=== PATIENT | female | born 1990 | race Two or more races ===

== ENCOUNTER 2023-01-20 21:21 | Outpatient (CLI) | payer MEDICAID, SELFPAY ==
[2023-01-20 21:28] VITALS: BP 121/76; PULSE 103; RESP 18; TEMP 36.7; O2SAT 98
--- NOTE | 2023-01-20 21:43 | ED.NURSE ---
this RN called OB, OB to continue assessment and potential treatments in OB department.
[2023-01-20 22:08] VITALS: PULSE 102; O2SAT 93
[2023-01-20 22:09] VITALS: BP 129/70; PULSE 93; PULSE 98; RESP 18; TEMP 37.4; O2SAT 96
[2023-01-20 22:26] LABS: Appearance Urine Clear (Clear); Bilirubin Urine Negative (Negative); Blood Urine Negative (Negative); Color Urine Yellow (Yellow); Glucose Urine Negative (Negative); Ketones Urine Negative (Negative); Leukocyte Esterase Urine Negative (Negative); Nitrite Urine Negative (Negative); Protein Urine Negative (Negative); Specific Gravity Urine 1.015 (1.000-1.030); Urobilinogen Urine 0.2 (0.2-1.0)
[2023-01-20 22:51] LABS: Clue Cells <20% Clue Cells Seen (None Seen); Trichomonas No Trichomonas Seen (None Seen); Yeast No Yeast Seen (None Seen)
--- NOTE | 2023-01-20 23:47 | ED.GENADULT ---
HPI - General Adult General Chief complaint: Abdominal Pain Stated complaint: 30 weeks , unspecific complaint. Time Seen by Provider: 01/20/23 22:03 History of Present Illness HPI narrative: Patient was not seen in the emergency department. She [facility] managed by [facility]. Related Data Home Medications Medication Instructions Recorded Confirmed aspirin 81 mg chewable tablet 1 tab PO DAILY 01/20/23 01/20/23 ferrous sulfate 325 mg (65 mg 325 mg PO DAILY 01/20/23 01/20/23 iron) tablet,delayed release vitamin with calcium 1 tab PO DAILY 01/20/23 01/20/23 no.72-iron 27 mg-folic acid 1 mg tablet ( Vitamins Plus Low Iron) progesterone micronized 200 mg 200 mg PO QPM 01/20/23 01/20/23 capsule Allergies Allergy/AdvReac Type Severity Reaction Status Date / Time No Known Drug Allergies Allergy Verified 01/20/23 22:12 [facility] PFS Social History Smoking Status: Never smoker Exam Const: Vital Signs, click to edit/add: Vital Signs - 24 hr 01/20/23 21:28 01/20/23 22:08 01/20/23 22:09 Temperature 98.0 F Pulse Rate 93 Pulse Rate [Left P ulse Oximeter] 103 H Respiratory Rate 18 Blood Pressure 129/70 Blood Pressure [Ri ght Upper Arm] 121/76 Pulse Oximetry 98 93 96 Oxygen Delivery Me thod Room Air 01/20/23 22:09 Temperature 99.3 F Pulse Rate Pulse Rate [Left P ulse Oximeter] Respiratory Rate 18 Blood Pressure Blood Pressure [Ri ght Upper Arm] Pulse Oximetry Oxygen Delivery Me thod Course Vital Signs Vital signs: Initial Vital Signs Temperature 98.0 F 01/20/23 21:28 Temperature Source Temporal Artery Scan 01/20/23 21:28 Pulse Rate 103 H 01/20/23 21:28 Pulse Rhythm Regular 01/20/23 21:28 Respiratory Rate 18 01/20/23 21:28 Blood Pressure 121/76 01/20/23 21:28 Blood Pressure Mean 91 01/20/23 21:28 Blood Pressure Position Sitting 01/20/23 21:28 Pulse Oximetry 98 01/20/23 21:28 Oxygen Delivery Method Room Air 01/20/23 21:28 Vital Signs Temperature 98.0 F 01/20/23 21:28 Pulse Rate 103 H 01/20/23 21:28 Respiratory Rate 18 01/20/23 21:28 Blood Pressure 121/76 01/20/23 21:28 Pulse Oximetry 98 01/20/23 21:28 Oxygen Delivery Method Room Air 01/20/23 21:28 Temperature 99.3 F 01/20/23 22:09 Pulse Rate 93 01/20/23 22:09 Respiratory Rate 18 01/20/23 22:09 Blood Pressure 129/70 01/20/23 22:09 Pulse Oximetry 96 01/20/23 22:09 Oxygen Delivery Method Room Air 01/20/23 21:28 Medical Decision Making Lab Data Labs: Lab Results 01/20/23 01/20/23 Range/Units 22:00 22:40 Urine Color Yellow (Yellow) Urine Appearance Clear (Clear) Urine pH 7.0 (5.0-8.5) Ur Specific [place] 1.015 (1.000-1.030) Urine Protein Negative (Negative) Urine Glucose (UA) Negative (Negative) Urine Ketones Negative (Negative) Urine Blood Negative (Negative) Urine Nitrite Negative (Negative) Urine Bilirubin Negative (Negative) Urine Urobilinogen 0.2 (0.2-1.0) Ur Leukocyte Esterase Negative (Negative) Vaginal Trichomonas No Trichomonas Seen (None Seen) Vaginal Yeast No Yeast Seen (None Seen) Vaginal Clue Cells <20% Clue Cells Seen (None Seen) Discharge Plan Discharge Patient Disposition: Admit to OB
== END 2023-01-20 23:14 | disposition home or self-care (01) ==
LOC: OB OUT 22:03 → ED 22:03 → OB 22:04
PROVIDERS: Emergency Provider Family Medicine; PCP Internal Medicine; Visit Provider Family Medicine
DX: O47.03 False labor before 37 completed weeks of gestation, third trimester (principal); Z3A.30 30 weeks gestation of pregnancy
CPT/HCPCS: 59025; 81003; 87210; 99213; 99281

== ENCOUNTER 2023-03-16 23:24 | Outpatient (CLI) | payer MEDICAID, SELFPAY ==
[2023-03-17 00:04] VITALS: BP 119/76; PULSE 85
[2023-03-17 00:21] LABS: Amnisure Rom* Negative
--- NOTE | 2023-03-17 01:40 | PC.OBNST ---
NST Note NST Note Start: 03/16/23 23:48 Freq: ONCE Status: Active Protocol: Document 03/17/23 01:35 BETH (Rec: 03/17/23 01:39 BETH [id number]) NST Note 6 Para (# of births) 1 EDC 04/07/23 Gestational Age In Weeks & Days 37 Weeks & 0 Days Patient Presented with Complaint(s) of Leaking fluid Reactive Yes Appropriate for Gestational Age Yes GABRIELA Soto RN Date 03/17/23 Reactive Yes Appropriate for Gestational Age Yes GABRIELA Espinoza Date 03/17/23 OB NST charge Yes Complete NST Note via Write Note Yes The provider's electronic signature indicates the NST is reactive/appropriate for gestational age. *Note to provider: If an addendum is required, open the patient's chart and click on the note under the Nurse/Allied Health tab.
--- NOTE | 2023-03-17 01:42 | PC.OBNST ---
NST Note NST Note Start: 03/16/23 23:48 Freq: ONCE Status: Active Protocol: Document 03/17/23 01:35 BETH (Rec: 03/17/23 01:39 BETH [id number]) NST Note 6 Para (# of births) 1 EDC 04/07/23 Gestational Age In Weeks & Days 37 Weeks & 0 Days Patient Presented with Complaint(s) of Leaking fluid Reactive Yes Appropriate for Gestational Age Yes GABRIELA Soto RN Date 03/17/23 Reactive Yes Appropriate for Gestational Age Yes GABRIELA Espinoza Date 03/17/23 OB NST charge Yes Complete NST Note via Write Note Yes The provider's electronic signature indicates the NST is reactive/appropriate for gestational age. *Note to provider: If an addendum is required, open the patient's chart and click on the note under the Nurse/Allied Health tab.
== END 2023-03-17 01:15 | disposition home or self-care (01) ==
LOC: OB OUT 23:25 → OB 23:25
PROVIDERS: PCP Internal Medicine; Visit Provider Family Medicine
DX: O47.1 False labor at or after 37 completed weeks of gestation (principal); Z3A.39 39 weeks gestation of pregnancy
CPT/HCPCS: 59025; 84112; 99213

== ENCOUNTER 2023-03-29 12:26 | Outpatient (CLI) | payer MEDICAID, SELFPAY ==
[2023-03-29 12:47] VITALS: BP 120/77; PULSE 106
[2023-03-29 13:03] VITALS: BP 132/79; PULSE 98
[2023-03-29 13:18] VITALS: BP 124/76; PULSE 90
[2023-03-29 13:30] LABS: Hematocrit 37.4 % (33.0-51.0); Hemoglobin* 12.5 gm/dL (12.0-16.0); Mean Corpuscular HGB Conc 33 gm/dL (32-36); Mean Corpuscular Hemoglobin 31 pg (26-34); Mean Corpuscular Volume 92 fL (80-100); Platelet Count* 187 K/uL (140-440); Red Blood Count 4.07 m/uL (4.00-5.20); White Blood Count* 8.25 K/uL (4.50-11.00)
[2023-03-29 13:35] LABS: Slide Review Reflex No
[2023-03-29 13:44] VITALS: TEMP 36.6
[2023-03-29 13:45] LABS: Total Protein Urine 16 mg/dL
[2023-03-29 13:45] LABS: Alanine Aminotransferase* 19 U/L (4-35); Aspartate Amino Transferase* 25 U/L (12-35); Blood Urea Nitrogen* 5 mg/dL (5-24); Creatinine* 0.4 mg/dL (0.5-1.5); Estimated Glomerular Filt Rate 136 ml/min; Prothrombin Time 12.7 Seconds
[2023-03-29 13:46] LABS: Fibrinogen* 465 mg/dL (200-450); Partial Thromboplastin Time* 24 Seconds (23-33)
[2023-03-29 13:46] LABS: Creatinine Urine 32.7 mg/dL
[2023-03-29] MEDS: ACETAMINOPHEN 500 MG TABLET PO (14:35)
[2023-03-29] MEDS: METOCLOPRAMIDE 10 MG TABLET PO (14:35)
[2023-03-29] MEDS: LACTATED RINGERS 1000 ML 1,000 ML 500 ML IV (15:01)
[2023-03-29 15:54] VITALS: BP 129/76; PULSE 83
--- NOTE | 2023-03-29 17:36 | PC.OBNST ---
NST Note NST Note Start: 03/29/23 12:32 Freq: ONCE Status: Discharge Protocol: Document 03/29/23 16:00 WK (Rec: 03/29/23 17:36 WK [id number]) NST Note 6 Para (# of births) 1 EDC 03/31/23 Gestational Age In Weeks & Days 39 Weeks & 5 Days Patient Presented with Complaint(s) of Pain,Headache,Other If Pain, describe location abdominal cramping Reactive Yes RN Chris RN Date 03/29/23 Reactive Yes RN Cecilia RNC Date 03/29/23 OB NST charge Yes Complete NST Note via Write Note Yes The provider's electronic signature indicates the NST is reactive/appropriate for gestational age. *Note to provider: If an addendum is required, open the patient's chart and click on the note under the Nurse/Allied Health tab.
== END 2023-03-29 16:30 | disposition home or self-care (01) ==
LOC: OB OUT 12:26 → OB 12:27
PROVIDERS: PCP Internal Medicine; Visit Provider Family Medicine
DX: O47.1 False labor at or after 37 completed weeks of gestation (principal); Z3A.39 39 weeks gestation of pregnancy
CPT/HCPCS: 36415; 59025; 82565; 82570; 84156; 84450; 84460; 84520; 85027; 85384; 85610; 85730; 99213; A9270; J7120

== ENCOUNTER 2023-04-01 16:26 | Inpatient (IN) | payer MEDICAID, SELFPAY ==
[2023-04-01 16:39] VITALS: BP 131/89; PULSE 93; TEMP 37
[2023-04-01 16:43] VITALS: BMI 39.4
--- NOTE | 2023-04-01 18:18 | PM.OBHPLI ---
OB - H&P: HPI Labor/Induction History of Present Illness Date Seen: 04/01/23 Chief Complaint: The patient is a 32 year old 6 para 0141 at 40+1 weeks gestation by LMP, who presents for IOL. Chief complaint: Maternity Narrative: Arabella Mccain is a 32 yo at 40+1 weeks by LMP here for IOL. has been uncomplicated. She has been on ASA for history of preeclampsia with prior and was on progestin given prior . on 03/29/23, she was seen in the center with severe headache and vision changes. Labs were unremarkable other than PCR of 0.4. Her headache did resolve with IV fluids, Tylenol and reglan. Because of her headache and prior history of preeclampsia, she requested an earlier induction. She reports no LOGAN, no abdominal pain, swelling is no worse than it has been. She is feeling pelvic pressure and occasional mild contractions. History of Present Dating criteria: based on LMP care: good care Ultrasounds: normal 1st trimester US and normal mid trimester US Medical complications: none Labs Blood type: O (+) positive Rubella: immune RPR/VDLR: nonreactive GBS status: negative HBsAG: negative Review of Systems Status of ROS: Reports: 6 or more systems reviewed and unremarkable except as noted in History and below Meds Home Medications and Allergies Home Medications Medication Instructions Recorded Confirmed Type aspirin 81 mg chewable tablet 1 tab PO DAILY 01/20/23 04/01/23 History ferrous sulfate 325 mg (65 mg 325 mg PO DAILY 01/20/23 04/01/23 History iron) tablet,delayed release vitamin with calcium 1 tab PO DAILY 01/20/23 04/01/23 History no.72-iron 27 mg-folic acid 1 mg tablet ( Vitamins Plus Low Iron) calcium carbonate 200 mg calcium 200 mg PO QID PRN 04/01/23 04/01/23 History (500 mg) chewable tablet (Antacid (calcium carbonate)) famotidine 20 mg tablet 20 mg PO BID 04/01/23 04/01/23 History Allergies Allergy/AdvReac Type Severity Reaction Status Date / Time No Known Drug Allergies Allergy Verified 01/20/23 22:12 OB - H&P: Exam Physical Exam: Vital signs: Temp Pulse BP 98.6 F 93 131/89 04/01/23 16:39 04/01/23 16:39 04/01/23 16:39 Constitutional: Constitutional: no acute distress Routine HEENT Exam: Head: Present atraumatic Eye: Present EOMI and PERRL ENT: Present mucous membranes moist and TM's normal bilaterally Routine Neck Exam: Neck: Present full ROM Routine Respiratory Exam: Respiratory: Present CTA bilaterally Routine Cardiovascular Exam: Cardiovascular: RRR Detailed Labor and Delivery Exam: Patient Gravid: Yes Dilation (cm): 2 Effacement (%): 40 Cervix position: posterior Consistency: medium Cervical ripeness score: 4 Contraction frequency (min): 5 Contraction intensity: Mild Fetus (Single): Station: -3 Amniotic Membrane Status: intact Heart Rate Baseline: 150 Monitor Accelerations: Present Monitor Decelerations: None Flexographic Printing Machinist Variability: Moderate (6-25) Routine Psychiatric Exam: Present normal affect and normal thought process OB - Problem Based A/P Additional Plan (1) Term : Status: Acute Plan Patient here for elective induction, but in the setting of prior preeclampsia, recent severe headache/vision changes. Discussed risks/benefits of induction and she would like to proceed with th einduction. Delivery/Labor/Induction Plan Induction method: Intracervical balloon catheter
[2023-04-01 19:14] VITALS: BP 123/78; PULSE 100; RESP 16; TEMP 36.6
[2023-04-01] MEDS: hydrOXYzine pamoate 25 MG CAPSULE 100 MG PO (20:08)
[2023-04-01] MEDS: MORPHINE 10 MG/ML inj IM (20:08)
[2023-04-01] MEDS: LACTATED RINGERS 1000 ML 1,000 ML 999 ML IV (21:12)
[2023-04-01 21:49] LABS: Basophils Absolute Auto 0.02 K/uL (0.00-0.30); Basophils Percent Auto 0.2 % (0.0-3.0); Eosinophils Absolute Auto 0.12 K/uL (0.00-0.50); Eosinophils Percent Auto 1.3 % (0.0-7.0); Hematocrit 36.8 % (33.0-51.0); Hemoglobin* 12.5 gm/dL (12.0-16.0); Immature Granulocytes Abs Auto 0.09 K/uL (0.00-0.30); Immature Granulocytes Pct Auto 0.9 %; Lymphocytes Percent Auto 19.6 % (20-44); Mean Corpuscular HGB Conc 34 gm/dL (32-36); Mean Corpuscular Hemoglobin 31 pg (26-34); Mean Corpuscular Volume 91 fL (80-100); Monocytes Percent Auto 5.5 % (0.0-11.0); Neutrophils Percent Auto 72.5 % (42.0-72.0); Platelet Count* 184 K/uL (140-440); RDW Coefficient of Variation % 13.7 % (11.5-15.5); Red Blood Count 4.03 m/uL (4.00-5.20); White Blood Count* 9.57 K/uL (4.50-11.00)
[2023-04-01 22:02] LABS: Slide Review Reflex No
[2023-04-01 23:52] VITALS: BP 109/61; PULSE 95; RESP 16; TEMP 36.9
[2023-04-02] VITALS (34 sets, daily range): BP systolic 106–135; BP diastolic 56–84; PULSE 82–107; RESP 16–18; TEMP 36.7–37.3; O2SAT 96–98
[2023-04-02] MEDS: LACTATED RINGERS 1000 ML 1,000 ML 999 ML IV (02:17)
--- NOTE | 2023-04-02 05:15 | PM.OBPNL ---
Subjective Date Seen: 04/02/23 Narrative: Arabella is a at 40+2 weeks gestation who underwent cook catheter placement overnight for cervical ripening. Arabella is here for elective induction, although induction was scheduled after visit for severe headache and vision changes and history of preeclampsia. After morphine and vistaril administration at 2000, baby had minimal variability and this did not improve with IV fluids, juice or position changes. at 0200, after reviewing the strip with hat conditioner health administration teacher, we elected to try another 1 L IV fluids and reassess at 0400. still showed minimal variability. Cook catheter removed. After discussing concerns with patient and discussion of plan, she underwent AROM with moderate amount of clear fluid at 0500 and IUPC and FSE placed. Patient tolerated the procedure well. Objective Vital Signs: Last Vital Signs Temp 98.3 F 04/02/23 04:20 Pulse 103 H 04/02/23 04:19 Resp 16 04/01/23 23:52 BP 122/78 04/02/23 04:19 Pulse Ox 97 04/02/23 04:20 Pelvic Exam Dilation (cm): 5 Effacement (%): 70 Station: -3 Contractions Monitor mode: Internal Contraction Frequency: 4-6 Contraction pattern: Irregular Contraction intensity: Mild Assessment Station: -3 Amniotic Membrane Status: AROM Status: Category ll Heart Rate Baseline: 150 Saw Repairer Variability: Minimal (3-5) Monitor Accelerations: Absent Monitor Decelerations: None Plan Plan: Induction started with AROM. Given lack of variability on strip, will continue expectant management for now. If FHTs will tolerate, and if no cervical change is made, will start pitocin. If FHTs continue to be non reactive, will have hat conditioner consult to advise of labor management.
[2023-04-02] MEDS: OXYTOCIN 30 unit/500 ML in NS 30 UNIT/500 ML BAG IVPB (09:49)
[2023-04-02] MEDS: LACTATED RINGERS 1000 ML 1,000 ML 124 ML IV (09:49)
--- NOTE | 2023-04-02 12:18 | P.OBPN_ITS ---
Subjective Date Seen: 04/02/23 Narrative: After consultation with OB health management consultant, pitocin was started this morning, however with only 2 units of pitocin she began having recurrent late decelerations and prolonged periods of minimal variability in FHTs. She has not made cervical change, so OB was consulted to discuss c section. Objective Vital Signs: Last Vital Signs Temp 98.9 F 04/02/23 11:05 Pulse 94 04/02/23 11:55 Resp 16 04/02/23 11:05 BP 116/56 L 04/02/23 11:55 Pulse Ox 97 04/02/23 04:20 Pelvic Exam Dilation (cm): 5 Effacement (%): 70 Station: -3 Contractions Monitor mode: Internal Contraction pattern: Irregular Contraction intensity: Mild Assessment Station: -3 Amniotic Membrane Status: AROM Status: Category ll Heart Rate Baseline: 150 Banquet Line Cook Variability: Minimal (3-5) Monitor Accelerations: Absent Monitor Decelerations: Recurrent Tracing Comments: recurrent late and variable deceleration. Plan Plan: OB consulted and discussed .
--- NOTE | 2023-04-02 12:21 | PM.OBCN1 ---
OB - CN: HPI Date of Consult Time Seen by Provider: 12:21 Date Seen: 04/02/23 Consult date: 04/02/23 Requesting Physician: Marcia Douglas MD Primary Care Provider: Kaiser Salmeron MD Consult Narrative Narrative: HPI: Arabella is a 32 year old G 6 P 0141 at 40 weeks and 2 days gestation that was admitted to the Center on 04/01/23 for induction of labor due to nonreactive heart rate tracing. She had a Cook catheter placed on 04/01/2023. The heart rate tracing had long areas of minimal variability and spontaneous decelerations overnight. The Cook catheter was removed at 4:00 a.m.. Official rupture membranes took place at 5:00 a.m. with clear fluid noted. The heart rate tracing became much more reassuring and Pitocin was started and repetitive late decelerations were noted. The Pitocin was turned off and restarted a 2nd time resulting an repetitive late decelerations again. At that point I was asked to see the patient for recommendations for a primary low-transverse section due to intolerance of labor remote from delivery. Please see Dr. Gutierrez hers history and physical admission note for complete past medical, surgical, social and family histories. History of Present Dating criteria: based on LMP care: good care Ultrasounds: normal mid trimester US complications comment: History of delivery & preeclampsia. This uncomplicated. History History 6 Elective abortions Para 1 Spontaneous abortions Hx # Term Pregnancies Ectopic pregnancies Hx # Pregnancies Multiple births Number of Living Children 1 Labs Blood type: O (+) positive Rubella: immune RPR/VDLR: nonreactive GBS status: negative HBsAG: negative OB Labs: Lab Assessment Start: 04/01/23 16:41 Freq: ONCE Status: Complete Protocol: PC.OBGBS Activity Type Activity Date Activity User E-sign Co-sign Detail Recorded Client Recorded Date Recorded By Document 04/01/23 17:45 HCR [id number] 04/01/23 17:46 HCR 04/01/23 17:45 Lab Assessment GBS Status negative GBS Additional Criteria None No Treatment Needed OK Are Labs Available Yes Maternal Blood Type O Maternal RH Factor Positive Evaluate Maternal Rubella Immune Status Immune Hepatitis B Surface Antigen Negative Maternal HIV Status Negative Maternal Syphillis (RPR) Status Negative PFSH PFSH Medical History (Updated 04/02/23 @ 12:33 by Suzanne Jacobo MD) intolerance to labor, delivered, current hospitalization ?O77.9 - Labor and delivery complicated by stress, unspecified (ICD-10) Surgical History (Updated 04/02/23 @ 12:33 by Suzanne Jacobo MD) Status post primary low transverse section (04/02/23) ?Z98.891 - History of uterine scar from previous surgery (ICD-10) Social History What is your current living situation?: I presently have a place to live Problems where you live: no known problems In the past 12 months, utilities in danger of being shut off: no In the past 12 mos, have been you worried that your food would run out before you had money to buy more?: never true In the past 12 mos, the food you bought just didn't last and you didn't have money to buy more?: never true Smoking Status: Never smoker How often does anyone, including family, friends and others, physically hurt you: never How often does anyone, including family, friends and others, insult or talk down to you: never How often does anyone, including family, friends and others, threaten you with harm: never How often does anyone, including family, friends and others, scream or curse at you: never Meds Home Medications and Allergies Home Medications Medication Instructions Recorded Confirmed Type aspirin 81 mg chewable tablet 1 tab PO DAILY 01/20/23 04/01/23 History ferrous sulfate 325 mg (65 mg 325 mg PO DAILY 01/20/23 04/01/23 History iron) tablet,delayed release vitamin with calcium 1 tab PO DAILY 01/20/23 04/01/23 History no.72-iron 27 mg-folic acid 1 mg tablet ( Vitamins Plus Low Iron) calcium carbonate 200 mg calcium 200 mg PO QID PRN 04/01/23 04/01/23 History (500 mg) chewable tablet (Antacid (calcium carbonate)) famotidine 20 mg tablet 20 mg PO BID 04/01/23 04/01/23 History Allergies Allergy/AdvReac Type Severity Reaction Status Date / Time No Known Drug Allergies Allergy Verified 01/20/23 22:12 OB - H&P: Exam Physical Exam: Vital signs: Temp Pulse Resp BP Pulse Ox 98.9 F 94 16 116/56 L 97 04/02/23 11:05 04/02/23 11:55 04/02/23 11:05 04/02/23 11:55 04/02/23 04:20 Narrative: General: Pleasant, woman in no acute distress. Vital signs: Per her electronic medical record. FSE: Baseline 150's. Spontaneous decelerations. Sporadiac accelerations. Minimal variability. Category 2. IUPC: Very minimal contractions with [place] units less than 50 in 10 minutes SVE: see Dr. Douglas's note. OB - Results Labs Labs: Short CBC 04/01/23 Range/Units 20:35 WBC 9.57 (4.50-11.00) K/uL Hgb 12.5 (12.0-16.0) gm/dL Hct 36.8 (33.0-51.0) % Plt Count 184 (140-440) K/uL OB - CN: A/P Assessment and Plan (1) Term : Status: Acute (2) intolerance to labor, delivered, current hospitalization: Status: Acute (3) Status post primary low transverse section: Problem details: Girl. Palmer. Status: Acute Plan 1. Consent form for primary low-transverse section reviewed with the patient via registered nurse ambulatory. 2. Recommended urgent delivery due to intolerance of labor with positive contraction stress test in a patient who is not actively laboring. 3. All questions answered.
--- NOTE | 2023-04-02 12:34 | PM.PROC ---
Procedure Note Time Seen by Provider: 12:34 Date Seen: 04/02/23 Will [facility] bill your pro fee for this procedure?: Yes Procedure: Preoperative diagnosis: 32 year-old 6 para 0141 at 40 and 2/7 weeks intolerance of labor remote from delivery Postoperative diagnosis: Same Procedure: Primary low-transverse section Anesthesia: Spinal Surgeon: Suzanne Jacobo MD Campus Recruiting Coordinator: Cyn Sofia RN FA Quantitative blood loss: 524 mL IV Fluid: 900 mL UOP: 250 mL clear urine at the end of the procedure Specimen: Placenta Drain(s): Tee to gravity Findings: A live female was delivered from the LOP and asynclitic position at 1:18 pm. Apgars were 7 at 1 min, 7 at 5 min. and 8 at 10 min., respectively. weight: 8 lb 10 oz. Nuchal cord(s): Yes: Loose single nuchal cord easily reduced prior to delivering the infant's shoulders. The placenta was delivered spontaneously and complete at 1:19 pm. Amniotic fluid: clear. Normal uterus, fallopian tubes and ovaries were noted. Other findings: No abnormalities Procedure: Arabella was taken to the OR where spinal anesthetic was found be adequate. A Tee catheter was placed. The patient was then placed in the dorsal supine position with a leftward tilt. She was then prepped and draped in a normal sterile manner. A Pfannenstiel skin incision was made and carried through sharply to the underlying layer of fascia. Fascia was incised in the midline and this incision carried laterally with Brady scissors. The superior aspect of fascial incision was grasped with Jayesh clamps, tented up, and the rectus muscles dissected off with a combination of blunt and sharp dissection. The inferior aspect of the fascial incision was not dissected off of the rectus muscles. The rectus muscles were in the midline. The peritoneum was identified, grasped with 2 Julienne clamps and entered sharply. This opening was extended bluntly. An Connor-O self-retaining retractor was placed. A bladder flap was not created. Uterus was incised in a low transverse manner in the midline. This incision carried laterally with blunt pressure on the inferior and superior aspects of the uterine incision. The amniotic sac was ruptured. The infant's head and body was delivered atraumatically. The was shown to the patient and her support person and then handed to waiting pediatric and nursing staff. The placenta was delivered spontaneously and complete. The uterus was cleared of clots and debris. The uterine incision was re-approximated with the uterus in vivo. The 1st layer using 0-Vicryl in a running, locked manner. The 2nd layer using 0-Monocryl in a running, vertical, imbricating layer. Additional sutures needed for hemostasis: Yes: 2 figure of 8 sutures using 2-0 chromic. Excellent hemostasis was verified. The Connor retractor was removed. The peritoneum was repaired using 3-0 Vicryl in a running manner. The rectus muscles were not reapproximated. The rectus muscles were then closely inspected to verify hemostasis. Hemostasis was obtained with bipolar cautery. The fascia was then re-approximated using 0-Maxon loop in a running manner. The subcutaneous tissue was then irrigated with saline and hemostasis obtained with bipolar cautery. The subcutaneous tissue was re-approximated using 3-0 plain gut interrupted sutures in 3 layers. The skin was reapproximated using 4-0 Monocryl in a running subcuticular manner. Steri-Strips and a silver-containing Methaplex dressing were applied. The patient tolerated this procedure well. Sponge, lap and instrument counts were correct x2 active to the procedure. Patient was taken to the recovery area in stable condition. The patient received 3g of IV Ancef and 500mg IV azithromycin prior to skin incision. Anesthesia: regional, spinal and other (TAPS block) Campus Recruiting Coordinator: Cyn Sofia Estimated blood loss (mL): 524 IV fluids (mL): 900 Urine output (mL): 250 Pathology: specimen obtained, sent to pathology Condition: stable Disposition: floor
--- NOTE | 2023-04-02 12:37 | W.ANESCHARGE ---
Anesthesia Charges Start Date/Time Anesthesia Start Date: 04/02/23 Anesthesia Start Time: 12:39 Stop Date/Time Anesthesia Stop Date: 04/02/23 Anesthesia Stop Time: 14:16 Summary Emergency: MDA
--- NOTE | 2023-04-02 12:37 | W.PM.NB ---
Nerve Block Nerve Block Time Seen by Provider: 14:07 Date Seen: 04/02/23 Type of block requested by surgeon for post-operative analgesia: TAP Side: bilateral Time out performed: Yes Verification of patient name: Yes Verification of date of : Yes Site marking: site marked Name of person performing procedure: Mikel Continuous monitoring Was continuous monitoring of O2 sat, B/P, diagnostic cardiac sonographer, recorded every 15 minutes?: Yes Procedure Checklist: sterile prep, needles and gloves Ultrasound guided. Images saved: Yes Medications given in 5ml increments after negative aspiration: Marcaine %: 0.25 mL: 30 Needle gauge: 20 and Exparel mL: 10 Patient tolerated procedure well: Yes Additional comments: Needle noted adjacent to nerve Block Charges Block Charge (with Pro Fee): TAP Bilateral Use of Ultrasound Machine for Block: Yes- US Guidance/pain block
[2023-04-02] MEDS: CEFAZOLIN 1 GM inj 3 GM IVP (12:50)
[2023-04-02] MEDS: AZITHROMYCIN 500 MG in 0.9 % SODIUM CHLORIDE 250 ml 250 ML 255 MG IVPB (13:07)
--- NOTE | 2023-04-02 14:23 | P.ANES_ITS ---
Anesthesia Charges Start Date/Time Anesthesia Start Date: 04/02/23 Anesthesia Start Time: 12:39 Stop Date/Time Anesthesia Stop Date: 04/02/23 Anesthesia Stop Time: 14:16 Summary Emergency: SENIOR BUSINESS ARCHITECT
[2023-04-02] MEDS: diphenhydrAMINE 50 MG/ML inj 12.5 MG IVP (18:15)
[2023-04-02] MEDS: KETOROLAC 30 MG/ML inj IVP (20:25)
[2023-04-03] VITALS (16 sets, daily range): BP systolic 94–107; BP diastolic 56–71; PULSE 92–115; RESP 16; TEMP 36.7–36.9; O2SAT 96–98
[2023-04-03] MEDS: KETOROLAC 30 MG/ML inj IVP ×4 (02:27→21:20)
[2023-04-03] MEDS: ACETAMINOPHEN 500 MG TABLET 1000 MG PO ×4 (05:21→22:56)
[2023-04-03] MEDS: DOCUSATE SODIUM 100 MG CAPSULE PO (08:36)
[2023-04-03] MEDS: SIMETHICONE 80 MG TAB.CHEW PO ×2 (08:37→22:57)
--- NOTE | 2023-04-03 08:37 | PM.OBPNVD1 ---
OB - PN:Subj Subjective Date Seen: 04/03/23 Patient comments OB post-: no complaints, pain well controlled, perineal pain and tolerating diet infant status: bottle Narrative: Arabella is a 32 y.o. who was admitted to [facility] for induction of labor for non-reassuring status. She is a Dr. Douglas patient. She had an uncomplicated .?The patient feels well. ?The pain is well controlled with current medications. ?She has no new complaints. ?She is formula feeding.? the patient has done well.? Vitals have been stable.? She has remained afebrile.? Has a good appetite, is tolerating a general diet. ?She is voiding without difficulty.? She is not yet passing gas and has not had a bowel movement.? She is ambulating and denies any dizziness.? Has scant amount of rubra lochia. 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 OB - PN: Obj Exam Physical Exam: Vital signs: Temp Pulse Resp BP Pulse Ox O2 Del Method 98.1 F 115 H 16 101/60 96 Room Air 04/03/23 04:20 04/03/23 04:20 04/03/23 06:17 04/03/23 04:20 04/03/23 04:20 04/03/23 04:20 Narrative: GENERAL APPEARANCE:? normal affect, alert, no distress MOOD:? appropriate CHEST:? clear to auscultation HEART:? regular rate and rhythm ABDOMEN:? soft, non-tender the uterine fundus is at Umbilicus, Midline and is appropriate for the stage of recovery. Bowel sounds diminished in LL quadrant, normal in other 3 quadrants. EXTREMITIES:? normal and trace edema Incision: Dressing in place, minimal old drainage present; dry and intact. Urinary Catheter Management: Urethral: Cath placed during this visit: yes Urethral indwelling: No Reason for continuing: epidural catheter Insertion date: 04/02/23 Insertion time: 13:45 OB - PN: Obj Data Labs Labs: Laboratory Results - last 24 hr 04/03/23 07:26 Hgb 10.0 L OB - PN: A/P Delivery Assessment and Plan (1) care and examination immediately after delivery: Status: Acute (2) Status post primary low transverse section: Problem details: Girl. Palmer. Status: Acute Plan day: 1 Plan: routine care Comments: Routine post- care. Anticipate discharge tomorrow or the following day.
[2023-04-03] MEDS: SODIUM CHLORIDE 0.9 % (FLUSH) 10 ML SYRINGE IVF (14:17)
[2023-04-04] MEDS: IBUPROFEN 600 MG TABLET PO ×2 (02:44→09:15)
[2023-04-04] MEDS: SIMETHICONE 80 MG TAB.CHEW PO ×2 (02:51→09:43)
[2023-04-04 05:30] VITALS: BP 96/65; PULSE 82; RESP 16; TEMP 36.3; O2SAT 98
[2023-04-04] MEDS: ACETAMINOPHEN 500 MG TABLET 1000 MG PO ×2 (05:41→13:34)
[2023-04-04] MEDS: OXYCODONE 5 MG TABLET PO (05:42)
[2023-04-04 08:31] VITALS: BP 115/77; PULSE 80; RESP 16; TEMP 36.4; O2SAT 98
[2023-04-04] MEDS: DOCUSATE SODIUM 100 MG CAPSULE PO (09:43)
--- NOTE | 2023-04-04 10:10 | P.DS_ITS ---
DS: Providers Provider Date Seen: 04/04/23 Date of admission: 04/01/23 16:26 Primary care physician: Shilpa Juarez MD Admitting Clinician: Marcia Douglas MD Consults: 04/01/23 17:02 Consult to Director Energy [CONS] Routine Comment: Reason for Consult:: Repairer Cylinder Heads Needed Attending Physician on discharge: Vickie Lew MD Date of Discharge: 04/04/23 DS: Diagnosis Discharge Diagnosis (1) Status post primary low transverse section: Status: Acute Problem details: Girl. Palmer. Exam Const: Vital Signs, click to edit/add: Vital Signs - 24 hr 04/03/23 10:30 04/03/23 11:30 04/03/23 12:30 Temperature Pulse Rate [Pulse Oximeter] Respiratory Rate 16 16 16 Blood Pressure [Ri ght Arm] Pulse Oximetry Oxygen Delivery Me thod 04/03/23 16:58 04/03/23 21:40 04/04/23 05:30 Temperature 98.2 F 98.4 F 97.3 F L Pulse Rate [Pulse Oximeter] 102 H 92 82 Respiratory Rate 16 16 16 Blood Pressure [Ri ght Arm] 96/63 107/71 96/65 Pulse Oximetry 97 97 98 Oxygen Delivery Me thod Room Air Room Air Room Air 04/04/23 08:31 Temperature 97.6 F Pulse Rate [Pulse Oximeter] 80 Respiratory Rate 16 Blood Pressure [Ri ght Arm] 115/77 Pulse Oximetry 98 Oxygen Delivery Me thod Room Air Documenting provider has reviewed patient's vital signs: yes Common normals: no apparent distress and oriented x3 General appearance: cooperative and comfortable HENMT: Common normals: normocephalic Head and scalp: normocephalic Resp: Common normals: normal respiratory effort Cardio: Common normals: regular rate Rate: regular rate GI: Common normals: soft to palpation and non-tender Inspection: normal to inspection and incision (silver Mepilex dressing, dry, no surrounding erythema) Palpation: soft and other (mild gaseous distention) Extremity: Common normals: normal to inspection General: edema (2+ pitting) Neuro: Common normals: oriented x3 Psych: Common normals: affect normal OB - DS: Summary Hospital Course Hospital Course: The patient is a 32 year old G6 now P2042 at 40 2/7 weeks gestation that was admitted to the Center on 04/01/23 for induction of labor. She had an uncomplicated delivery for intolerance of labor. She delivered a viable female infant. She is bottle feeding. the patient has done well. She complained of some gaseous distention and lower extremity swelling on the morning of discharge. Peripartum Data delivery method: Primary C/S; Labored Procedures: Procedures Operation Date: 04/02/23 12:45 Actual Procedure Side Surgeon p Primary Low Transversse Section Suzanne Jacobo MD complications: none [place] Infant Gender: Female Discharge Plan: Home Status at Discharge Overall status at discharge: patient is back to baseline Time Spent with Patient Time attestation: Total time spent providing and/or coordinating discharge services: Discharge Plan Discharge Disposition: Home, Self-Care Date of Admission: 04/01/23 16:26 Attending Provider on Discharge: Vickie Lew Primary Care Provider: Shilpa Juarez Condition: Stable Anticipated Discharge Date/Time: 04/04/23 10:17 Discharge Medications: New acetaminophen 500 mg Tablet 1,000 mg PO Q6H PRN (Reason: Pain) Qty: 30 0RF docusate sodium 100 mg Capsule 100 mg PO BID PRNQty: 30 0RF ibuprofen 600 mg Tablet 600 mg PO Q6H PRN (Reason: Pain) Qty: 30 0RF simethicone 80 mg Tablet,Chewable 80 - 160 mg PO Q4H PRN (Reason: Gas) Qty: 30 0RF oxycodone 5 mg Tablet 5 - 10 mg PO Q6H PRN (Reason: Pain) Qty: 20 0RF Continued ferrous sulfate 325 mg (65 mg iron) tablet,delayed release (DR/EC) 325 mg PO DAILY Vitamin Plus Low Iron 27 mg iron- 1 mg tablet 1 tab PO DAILY famotidine 20 mg tablet 20 mg PO BID calcium carbonate [Antacid (calcium carbonate)] 200 mg calcium (500 mg) tablet,chewable 200 mg PO QID PRN Discontinued aspirin 81 mg tablet,chewable 1 tab PO DAILY Discharge Orders: Discharge Order (Routine); Ordered 04/04/23 Ordered By: Vickie Lew Follow Up Appointments: Shilpa Juarez MD [Primary Care Provider] - Forms: [facility] Info Instructions
== END 2023-04-04 14:30 | disposition home or self-care (01) | DRG 788 ==
PROVIDERS: Admitting Provider Family Medicine; PCP Family Medicine; Visit Provider Obstetrics & Gynecology
PROC: 10D00Z1 Extraction of Products of Conception, Low, Open Approach (ICD-10-PCS; CPT 59514; principal; 2023-04-02 12:30)
DX: O76 Abnormality in fetal heart rate and rhythm complicating labor and delivery (principal); R51.9 Headache, unspecified; H53.9 Unspecified visual disturbance; G89.18 Other acute postprocedural pain; Z37.0 Single live birth; Z3A.40 40 weeks gestation of pregnancy
CPT/HCPCS: 01961; 36415; 64488; 76942; 85018; 85025; 86850; 86900; 86901; 88307; 99140; T1013; A9270; C1726; C9290; J0456; J0665; J0690; J1200; J1885; J2270; J2274; J2371; J2405; J2590; J7050; J7120

== ENCOUNTER 2023-04-07 17:35 | Emergency (ER) | payer MEDICAID, SELFPAY ==
[2023-04-07 17:40] VITALS: BP 126/81; PULSE 93; RESP 18; TEMP 36.7; O2SAT 98; BMI 37.8
--- NOTE | 2023-04-07 18:01 | ED_ITS ---
HPI - General Adult General Time Seen by Provider: 18:01 Date Seen: 04/07/23 Chief complaint: Lower Extremity Swelling Stated complaint: Swollen feet, gave 5 days ago Time Seen by Provider: 04/07/23 17:49 Source: patient, RN notes reviewed, old records reviewed and caregiver services home Mode of arrival: ambulatory Limitations: no limitations History of Present Illness HPI narrative: Patient is a 32-year-old female coming in with concern lower extremity edema. Dr. Juarez had patient come in to be ruled out for preeclampsia. There is a history of preecl[place] from prior [place] country and no documenting records. Patient had a section for labor complications, this happened on April 02. She went home April 04 and was noting some lower extremity edema on that day. Blood pressures prior to her were 120s systolic. She notes no chest pain, no shortness of breath, no headache, no visual changes or scotoma. She has pain from her in that area but no fevers, no complaints of abdominal pain otherwise. She is getting small amount of lochia, nonodorous. No urinary symptoms. Her lower extremities or swelling, swell more when she is up on them. They do go down after she is elevated but soon as she gets up and moves around or is on her legs, they swell more. They have a burning sensation in the skin when they are swollen, feel tight and uncomfortable. She states they feel inflammatory. They feel swollen symmetrically bilaterally. She is both breast and bottle feeding. She does wonder if there is a medicine to fix this. She does not have compression stockings at home. Related Data Home Medications Medication Instructions Recorded Confirmed ferrous sulfate 325 mg (65 mg 325 mg PO DAILY 01/20/23 04/01/23 iron) tablet,delayed release vitamin with calcium 1 tab PO DAILY 01/20/23 04/01/23 no.72-iron 27 mg-folic acid 1 mg tablet ( Vitamins Plus Low Iron) calcium carbonate 200 mg calcium 200 mg PO QID PRN 04/01/23 04/01/23 (500 mg) chewable tablet (Antacid (calcium carbonate)) famotidine 20 mg tablet 20 mg PO BID 04/01/23 04/01/23 Previous Rx's Medication Instructions Recorded acetaminophen 500 mg tablet 1,000 mg (2 x 500 mg) PO Q6H PRN 04/04/23 Pain #30 tabs docusate sodium 100 mg capsule 100 mg PO BID PRN #30 caps 04/04/23 ibuprofen 600 mg tablet 600 mg PO Q6H PRN Pain #30 tabs 04/04/23 oxycodone 5 mg tablet 5 - 10 mg (1 - 2 x 5 mg) PO Q6H 04/04/23 PRN Pain #20 tabs simethicone 80 mg chewable tablet 80 - 160 mg (1 - 2 x 80 mg) PO Q4H 04/04/23 PRN Gas #30 tabs Allergies Allergy/AdvReac Type Severity Reaction Status Date / Time No Known Drug Allergies Allergy Verified 01/20/23 22:12 Review of Systems Status of ROS: Reports: 6 or more systems reviewed and unremarkable except as noted in History and below [facility] Medical History intolerance to labor, delivered, current hospitalization ?O77.9 - Labor and delivery complicated by stress, unspecified (ICD-10) Surgical History Status post primary low transverse section (04/02/23) ?Z98.891 - History of uterine scar from previous surgery (ICD-10) Social History What is your current living situation?: I presently have a place to live Problems where you live: no known problems In the past 12 months, utilities in danger of being shut off: no In the past 12 mos, have been you worried that your food would run out before you had money to buy more?: never true In the past 12 mos, the food you bought just didn't last and you didn't have money to buy more?: never true Smoking Status: Never smoker How often do you have a drink containing alcohol: never AUDIT-C Alcohol total score: 0 Non-prescribed substance use: denies use How often does anyone, including family, friends and others, physically hurt you : never How often does anyone, including family, friends and others, insult or talk down to you: never How often does anyone, including family, friends and others, threaten you with harm: never How often does anyone, including family, friends and others, scream or curse at you: never Exam Const: Vital Signs, click to edit/add: Vital Signs - 24 hr 04/07/23 17:40 04/07/23 19:14 Temperature 98.0 F 97.9 F Pulse Rate [Right Pulse Oximeter] 93 88 Respiratory Rate 18 16 Blood Pressure [Ri ght Upper Arm] 126/81 116/77 Pulse Oximetry 98 96 Oxygen Delivery Me thod Room Air Room Air Documenting provider has reviewed patient's vital signs: yes Common normals: no apparent distress, oriented x3, no limitations, healthy appearing, alert and well nourished General appearance: cooperative, comfortable, well kempt and well developed HENMT: Common normals: normocephalic, head/scalp atraumatic and hearing grossly normal bilaterally Head and scalp: normocephalic and atraumatic Face and sinus: normal facial exam Eye: Common normals: PERRL, EOMs intact bilaterally, conjunctivae normal and no scleral icterus Conjunctiva: conjunctiva(e) normal Pupil: PERRL Neck & C-Spine: Common normals: full ROM, no lymphadenopathy, supple and no JVD Resp: Common normals: normal respiratory effort, no retractions, no use of accessory muscles and clear to auscultation bilaterally Effort & inspection: able to speak in complete sentences Auscultation: clear to auscultation bilaterally Cardio: Common normals: no JVD, regular rate, regular rhythm, S1 normal heart sound, S2 normal heart sound, no gallops, no clicks and no murmurs Rate: regular rate Rhythm: regular rhythm Heart sounds: S1 normal and S2 normal GI: Other: Uterus below umbilicus, bandage over scar shows some middle old bleeding into the bandage. No erythema surrounding this. She has no rebound or guarding. Has tenderness in the lower uterine area around the scar that I would anticipate and is normal postsurgical discomfort. Extremity: Other: She has symmetric pitting edema, dorsum of feet are swollen have pitting edema. Still has fully mobile range of motion of joints symmetrically. No calf tenderness on either side/negative Homans. There is no overlying erythema or skin changes, just symmetric bilateral lower extremity edema. This certainly seems to be consistent with third-spacing postsurgical edema that can typically be seen in patients. Neuro: [place] Coma Scale: document GCS findings Cristiane coma scale eye opening: Spontaneous (4) [place] coma scale verbal response: Orientated (5) [place] coma scale motor response: Obey commands (6) [place] coma scale total score: 15 Common normals: oriented x3, CN's II-XII intact bilaterally, moves all extremities, no focal motor deficits and no sensory deficits noted Sensorium/orientation: alert Psych: Appearance: well kempt Course Course Hospital Course: Discussed with patient and her that this certainly seems like typical 3rd spacing. We will do a comprehensive metabolic panel and CBC just ensure normal labs. I am reassured that her blood pressure looks good. She has no physical symptoms outside of the edema that would make me concerned for symptoms of preeclampsia. She is not having any shortness of breath, no chest pain, vitals are otherwise quite stable in normal, oxygenating excellently, no tachycardia. We will see if we can get some compression stockings for her, have already discussed trying to elevate her legs as much as she is able to the next few days. This should start to go away within the next few days. Reevaluation(s) Time of Reevaluation #1: 20:43 Reevaluation #1: Have reviewed the findings of the very mildly elevated transaminase elevation but normal blood pressure, no other symptoms outside of edema. Other labs are reassuring. Have spoken with Dr. Juarez and she feels that patient can discharge to home. She has scheduled an appointment with Dr. Douglas for patient tomorrow morning at 8:25 a.m. for recheck. Consultations Consultation #1: Spoke with Dr. Juarez whom is on-call for [facility] coverage. She will review the case and call me back as I need to talk to Stroke Neurology whom is calling me currently. 7:52 p.m. she feels that the liver enzymes are just minimally elevated and not within the range of concerns for preeclampsia. She feels patient should be watch closely, will get her in with Dr. Douglas tomorrow morning at 8:25 a.m.. Most recent systolic blood pressure is 116 here. She agrees with Dilshad hose stockings, rest and elevation of legs in the interim. She does feel patient can discharge to home at this time. Time: 19:22 Vital Signs Vital signs: Initial Vital Signs Temperature 98.0 F 04/07/23 17:40 Temperature Source Temporal Artery Scan 04/07/23 17:40 Pulse Rate 93 04/07/23 17:40 Respiratory Rate 18 04/07/23 17:40 Blood Pressure 126/81 04/07/23 17:40 Blood Pressure Mean 96 04/07/23 17:40 Blood Pressure Position Sitting 04/07/23 17:40 Pulse Oximetry 98 04/07/23 17:40 Oxygen Delivery Method Room Air 04/07/23 17:40 Vital Signs Temperature 98.0 F 04/07/23 17:40 Pulse Rate 93 04/07/23 17:40 Respiratory Rate 18 04/07/23 17:40 Blood Pressure 126/81 04/07/23 17:40 Pulse Oximetry 98 04/07/23 17:40 Oxygen Delivery Method Room Air 04/07/23 17:40 Temperature 97.9 F 04/07/23 19:14 Pulse Rate 88 04/07/23 19:14 Respiratory Rate 16 04/07/23 19:14 Blood Pressure 116/77 04/07/23 19:14 Pulse Oximetry 96 04/07/23 19:14 Oxygen Delivery Method Room Air 04/07/23 19:14 Medical Decision Making Lab Data Labs: Lab Results 04/07/23 Range/Units 18:40 WBC 7.20 (4.50-11.00) K/uL RBC 3.36 L (4.00-5.20) m/uL Hgb 10.4 L (12.0-16.0) gm/dL Hct 32.0 L (33.0-51.0) % MCV 95 (80-100) fL MCH 31 (26-34) pg MCHC 33 (32-36) gm/dL RDW Coeff of Antoinette 13.6 (11.5-15.5) % Plt Count 221 (140-440) K/uL Neut % (Auto) 63.6 (42.0-72.0) % Lymph % (Auto) 23.9 (20-44) % [place] % (Auto) 5.7 (0.0-11.0) % Eos % (Auto) 3.3 (0.0-7.0) % Baso % (Auto) 0.3 (0.0-3.0) % Neut # (Auto) 4.58 (1.7-7.0) K/uL Lymph # (Auto) 1.72 (0.90-2.90) K/uL [place] # (Auto) 0.40 (0.00-0.90) K/UL Eos # (Auto) 0.24 (0.00-0.50) K/uL Baso # (Auto) 0.02 (0.00-0.30) K/uL Abs Immat Gran (auto) 0.23 (0.00-0.30) K/uL Imm/Tot Granulo (auto) 3.2 % Sodium 135 (135-149) mmol/L Potassium 3.5 L (3.6-5.1) mmol/L Chloride 106 (96-114) mmol/L Carbon Dioxide 23 (20-32) mmol/L BUN 9 (5-24) mg/dL Creatinine 0.6 (0.5-1.5) mg/dL Estimated Creat Clear 102.52 Estimated GFR 123 ml/min Glucose 80 (60-115) mg/dL Calcium 8.1 L (8.4-10.6) mg/dL Total Bilirubin 0.2 (0.1-1.5) mg/dL AST 46 H (12-35) U/L ALT 58 H (4-35) U/L Alkaline Phosphatase 99 (40-150) U/L Total Protein 5.8 L (6.0-8.3) g/dL Albumin 3.0 L (3.3-5.0) g/dL Critical Care Time Critical Care Time Critical Care Time: No Discharge Plan Discharge Clinical Impression: History of pre-eclampsia, Status post primary low transverse section, Edema, peripheral, Elevated liver transaminase level Patient Disposition: Home, Self-Care Condition: Stable Instructions: Leg Edema (ED) Additional Instructions: Present to clinic at [facility] at 8:20 a.m. tomorrow morning for an 8:[address] Douglas. Wear compression stockings as much as you can, may take them off overnight if there really bothering you. Keep legs elevated as much as you can and rest. With leg elevation, level of the heart is the goal for the elevation if you can do this. Liver enzymes are just minimally elevated. Your physician will continue to monitor for further symptoms of preeclampsia. They absolutely want to see you 1st thing tomorrow morning. Prescriptions: No Action ferrous sulfate 325 mg (65 mg iron) tablet,delayed release (DR/EC) 325 mg PO DAILY Vitamin Plus Low Iron 27 mg iron- 1 mg tablet 1 tab PO DAILY famotidine 20 mg tablet 20 mg PO BID calcium carbonate [Antacid (calcium carbonate)] 200 mg calcium (500 mg) tablet,chewable 200 mg PO QID PRN acetaminophen 500 mg Tablet 1,000 mg PO Q6H PRN (Reason: Pain) Qty: 30 0RF docusate sodium 100 mg Capsule 100 mg PO BID PRNQty: 30 0RF ibuprofen 600 mg Tablet 600 mg PO Q6H PRN (Reason: Pain) Qty: 30 0RF simethicone 80 mg Tablet,Chewable 80 - 160 mg PO Q4H PRN (Reason: Gas) Qty: 30 0RF oxycodone 5 mg Tablet 5 - 10 mg PO Q6H PRN (Reason: Pain) Qty: 20 0RF Follow Up/Referrals: Shilpa Juarez MD [Primary Care Provider] - Stand Alone Forms: [facility] Info Instructions
--- NOTE | 2023-04-07 19:02 | ED.NURSE ---
Compression socks applied 19:00
[2023-04-07 19:07] LABS: Basophils Absolute Auto 0.02 K/uL (0.00-0.30); Basophils Percent Auto 0.3 % (0.0-3.0); Eosinophils Absolute Auto 0.24 K/uL (0.00-0.50); Eosinophils Percent Auto 3.3 % (0.0-7.0); Hemoglobin* 10.4 gm/dL (12.0-16.0); Immature Granulocytes Abs Auto 0.23 K/uL (0.00-0.30); Immature Granulocytes Pct Auto 3.2 %; Lymphocytes Absolute Auto 1.72 K/uL (0.90-2.90); Lymphocytes Percent Auto 23.9 % (20-44); Mean Corpuscular HGB Conc 33 gm/dL (32-36); Mean Corpuscular Hemoglobin 31 pg (26-34); Mean Corpuscular Volume 95 fL (80-100); Monocytes Percent Auto 5.7 % (0.0-11.0); Neutrophils Absolute Auto 4.58 K/uL (1.7-7.0); Neutrophils Percent Auto 63.6 % (42.0-72.0); Platelet Count* 221 K/uL (140-440); RDW Coefficient of Variation % 13.6 % (11.5-15.5); Red Blood Count 3.36 m/uL (4.00-5.20); Slide Review Reflex No
[2023-04-07 19:13] LABS: Chloride* 106 mmol/L (96-114); Potassium* 3.5 mmol/L (3.6-5.1); Sodium* 135 mmol/L (135-149)
[2023-04-07 19:14] VITALS: BP 116/77; PULSE 88; RESP 16; TEMP 36.6; O2SAT 96
[2023-04-07 19:16] LABS: Alanine Aminotransferase* 58 U/L (4-35); Alkaline Phosphatase* 99 U/L (40-150); Aspartate Amino Transferase* 46 U/L (12-35); Bilirubin Total* 0.2 mg/dL (0.1-1.5); Blood Urea Nitrogen* 9 mg/dL (5-24); Carbon Dioxide* 23 mmol/L (20-32); Creatinine* 0.6 mg/dL (0.5-1.5); Est. Creatinine Clearance* 102.52; Estimated Glomerular Filt Rate 123 ml/min; Glucose* 80 mg/dL (60-115); Total Protein* 5.8 g/dL (6.0-8.3)
[2023-04-07 19:17] LABS: Calcium* 8.1 mg/dL (8.4-10.6)
== END 2023-04-07 20:46 | disposition home or self-care (01) ==
PROVIDERS: Emergency Provider Family Medicine; PCP Family Medicine
DX: O14.05 Mild to moderate pre-eclampsia, complicating the puerperium (principal); R74.01 Elevation of levels of liver transaminase levels; Z98.891 History of uterine scar from previous surgery
CPT/HCPCS: 36415; 80053; 85025; 99283; 99284

== ENCOUNTER 2024-07-08 12:24 | Emergency (ER) | payer MEDICAID, SELFPAY ==
[2024-07-08 12:39] VITALS: BP 130/76; PULSE 91; RESP 20; TEMP 36.8; O2SAT 99; BMI 32.1
--- NOTE | 2024-07-08 13:12 | ED_ITS ---
HPI - General Adult General Time Seen by Provider: 13:12 Date Seen: 07/08/24 Chief complaint: Weakness Stated complaint: body aches, - 18 wks Time Seen by Provider: 07/08/24 13:11 Source: patient, RN notes reviewed and old records reviewed Mode of arrival: ambulatory Limitations: no limitations History of Present Illness HPI narrative: 33-year-old 042 at 17 + 4 weeks gestation by LMP March 07 presents with generalized weakness and body aches. She reports yesterday she started feeling a little achy, continue taking his today along with nausea, nasal congestion. No vomiting or diarrhea. No abdominal pain. Denies urinary symptoms. Denies sore throat, cough, shortness of breath, headache, vision changes. Denies vaginal bleeding, abdominal cramping, has continued movement. Related Data Home Medications ?Medication ?Instructions ?Recorded ?Confirmed vitamin with calcium 1 tab PO DAILY 01/20/23 07/08/24 no.72-iron 27 mg-folic acid 1 mg tablet ( Vitamins Plus Low Iron) aspirin 81 mg tablet,delayed 81 mg PO DAILY 07/08/24 07/08/24 release progesterone micronized 200 mg mg vaginal DAILY 07/08/24 capsule Previous Rx's ?Medication ?Instructions ?Recorded acetaminophen 500 mg tablet 1,000 mg (2 x 500 mg) PO Q6H PRN 04/17/23 Pain #30 tabs ibuprofen 600 mg tablet 600 mg PO Q6H PRN Pain #30 tabs 04/17/23 ondansetron 4 mg disintegrating 4 mg PO Q6H PRN nausea and 07/08/24 tablet vomiting #20 tabs Allergies Allergy/AdvReac Type Severity Reaction Status Date / Time No Known Drug Allergies Allergy Verified 07/08/24 12:35 PFSH PFSH Medical History intolerance to labor, delivered, current hospitalization ?O77.9 - Labor and delivery complicated by stress, unspecified (ICD-10) Surgical History Status post primary low transverse section (04/02/23) ?Z98.891 - History of uterine scar from previous surgery (ICD-10) Social History What is your current living situation?: I presently have a place to live Problems where you live: no known problems In the past 12 months, utilities in danger of being shut off: no In past 12 months, lack of transportation kept you from medical appts, meetings, work, or getting things needed for daily living: no In the past 12 mos, have been you worried that your food would run out before you had money to buy more?: never true In the past 12 mos, the food you bought just didn't last and you didn't have money to buy more?: never true Smoking Status: Never smoker Do you use any of these nicotine containing products: None Second hand tobacco smoke exposure: No How often do you have a drink containing alcohol: never How often do you have six or more drinks on one occasion: Never AUDIT-C Alcohol total score: 0 Non-prescribed substance use: denies use How often does anyone, including family, friends and others, physically hurt you : never How often does anyone, including family, friends and others, insult or talk down to you: never How often does anyone, including family, friends and others, threaten you with harm: never How often does anyone, including family, friends and others, scream or curse at you: never Little interest or pleasure in doing things: not at all Feeling down, depressed, or hopeless: not at all service: No Exam Narrative: Exam Narrative: General: Well-developed and well-nourished, no acute distress Head: Atraumatic and normocephalic Eyes: Pupils are equal reactive, extraocular motions intact, conjunctiva clear ENT: External nose and ears are normal, posterior pharynx without erythema or exudate Neck: No midline cervical tenderness, full spontaneous range of motion the neck, trachea midline, no adenopathy Heart: Regular rate and rhythm no murmurs or thrills Lungs: Clear to auscultation bilaterally without wheezes or crackles Abdomen: Soft, nontender, nondistended with active bowel sounds Musculoskeletal: No tenderness, deformity, or edema Neurologic: Awake, alert, and oriented x3, no gross focal neurologic deficits, cranial nerves intact as tested Psych: Mood and affect are appropriate Skin: No rashes Const: Vital Signs, click to edit/add: Vital Signs - 24 hr 07/08/24 12:39 Temperature 98.2 F Pulse Rate [Pulse Oximeter] 91 Respiratory Rate 20 Blood Pressure [Ri ght Upper Arm] 130/76 Pulse Oximetry 99 Oxygen Delivery Me thod Room Air Course Course ED Course: Patient seen examined, presents today with nausea, sinus congestion, body aches, and fatigue. On exam here vital is stable, lungs are clear, no abdominal tenderness, no lower extremity swelling. With no cough, no fever, no shortness of breath, and clear lungs, pneumonia is clinically unlikely. Symptoms seem most consistent with viral process, urinalysis ordered given status although urinary symptoms. Positive movement and no vaginal bleeding or abdominal cramping to suggest complication. Patient's dose of blood pressure 130/76, patient is not yet 20 weeks so preeclampsia unlikely but will continue to monitor. Vital Signs Vital signs: Initial Vital Signs Temperature 98.2 F 07/08/24 12:39 Temperature Source Temporal Artery Scan 07/08/24 12:39 Pulse Rate 91 07/08/24 12:39 Pulse Rhythm Regular 07/08/24 12:39 Respiratory Rate 20 07/08/24 12:39 Blood Pressure 130/76 07/08/24 12:39 Blood Pressure Mean 94 07/08/24 12:39 Blood Pressure Position Sitting 07/08/24 12:39 Pulse Oximetry 99 07/08/24 12:39 Oxygen Delivery Method Room Air 07/08/24 12:39 Vital Signs Temperature 98.2 F 07/08/24 12:39 Pulse Rate 91 07/08/24 12:39 Respiratory Rate 20 07/08/24 12:39 Blood Pressure 130/76 07/08/24 12:39 Pulse Oximetry 99 07/08/24 12:39 Oxygen Delivery Method Room Air 07/08/24 12:39 Temperature 98.2 F 07/08/24 12:39 Pulse Rate 91 07/08/24 12:39 Respiratory Rate 20 07/08/24 12:39 Blood Pressure 130/76 07/08/24 12:39 Pulse Oximetry 99 07/08/24 12:39 Oxygen Delivery Method Room Air 07/08/24 12:39 Medical Decision Making Lab Data Labs: Lab Results 07/08/24 07/08/24 Range/Units 13:04 Unknown Urine Color Yellow (Yellow) Urine Appearance Clear (Clear) Urine pH 6.5 (5.0-8.5) Ur Specific [place] <= 1.005 (1.000-1.030) Urine Protein Negative (Negative) Urine Glucose (UA) Negative (Negative) Urine Ketones Negative (Negative) Urine Blood Negative (Negative) Urine Nitrite Negative (Negative) Urine Bilirubin Negative (Negative) Urine Urobilinogen 0.2 (0.2-1.0) Ur Leukocyte Esterase Negative (Negative) Urine RBC 0-2 (0-2) Urine WBC 0-2 (0-5) Ur Squamous Epith Cells Few (None-Few) Urine Bacteria Few A (None) SARS-CoV-2 (PCR) Negative SARS-CoV-2 (Negative) Influenza Type A (PCR) Negative PCR FLU A (Negative) Influenza Type B (PCR) Negative PCR FLU B (Negative) RSV (PCR) Negative PCR RSV (Negative) Discharge Plan Discharge Clinical Impression: Myalgia, Nausea, Nasal congestion, Patient Disposition: Home, Self-Care Condition: Stable Instructions: Viral Syndrome (ED) Additional Instructions: Take Tylenol as needed for body aches Take Zofran as needed for nausea Activity Level: Activity as Tolerated Discharge Diet: Regular Prescriptions: New ondansetron 4 mg tablet,disintegrating 4 mg PO Q6H PRN (Reason: nausea and vomiting) Qty: 20 0RF No Action acetaminophen 500 mg tablet 1,000 mg PO Q6H PRN (Reason: Pain) Qty: 30 0RF ibuprofen 600 mg tablet 600 mg PO Q6H PRN (Reason: Pain) Qty: 30 0RF Hold Instructions: Order Change aspirin 81 mg tablet,delayed release (DR/EC) 81 mg PO DAILY progesterone micronized 200 mg capsule vaginal DAILY Vitamin Plus Low Iron 27 mg iron- 1 mg tablet 1 tab PO DAILY Follow Up/Referrals: Shilpa Juarez MD [Primary Care Provider] - Stand Alone Forms: [employer] Info Instructions
[2024-07-08 13:32] LABS: Appearance Urine Clear (Clear); Bilirubin Urine Negative (Negative); Blood Urine Negative (Negative); Color Urine Yellow (Yellow); Glucose Urine Negative (Negative); Ketones Urine Negative (Negative); Leukocyte Esterase Urine Negative (Negative); Nitrite Urine Negative (Negative); Protein Urine Negative (Negative); Specific Gravity Urine <= 1.005 (1.000-1.030); Urobilinogen Urine 0.2 (0.2-1.0); pH Urine 6.5 (5.0-8.5)
[2024-07-08 14:03] LABS: PCR FLU A Negative PCR FLU A (Negative); PCR FLU B Negative PCR FLU B (Negative); PCR RSV Negative PCR RSV (Negative); SARS PCR* Negative SARS-CoV-2 (Negative)
[2024-07-08 14:10] LABS: RBC Urine 0-2 (0-2); WBC Urine 0-2 (0-5)
[2024-07-08 14:11] LABS: Bacteria Urine Few; Squamous Epithelial Cell Urine Few (None-Few)
--- NOTE | 2024-07-08 15:05 | ED.NURSE ---
heart tones performed, tones of 145-150 beats per minute were audible.
== END 2024-07-08 15:07 | disposition home or self-care (01) ==
PROVIDERS: Emergency Provider Family Medicine; PCP Family Medicine
DX: M79.10 Myalgia, unspecified site (principal); R11.0 Nausea; R09.81 Nasal congestion; Z33.1 Pregnant state, incidental
CPT/HCPCS: 81001; 87086; 87631; 99283; 99284

== ENCOUNTER 2024-11-02 12:30 | Outpatient (RCR) | payer MEDICAID, SELFPAY | END 2025-03-02 23:59 | disposition home or self-care (01) | PROVIDERS: PCP Family Medicine; Visit Provider Family Medicine | DX: O09.92 Supervision of high risk pregnancy, unspecified, second trimester (principal); M53.3 Sacrococcygeal disorders, not elsewhere classified; Z51.89 Encounter for other specified aftercare | CPT/HCPCS: 97110; 97140; 97162; T1013 ==

== ENCOUNTER 2024-11-21 20:25 | Inpatient (IN) | payer MEDICAID, SELFPAY ==
[2024-11-21] VITALS (13 sets, daily range): BP systolic 105–120; BP diastolic 64–81; PULSE 94–100; RESP 16–18; TEMP 36.5–37.1; O2SAT 94–96
[2024-11-21 16:42] LABS: Appearance Urine Clear (Clear); Bilirubin Urine Negative (Negative); Blood Urine Negative (Negative); Color Urine Yellow (Yellow); Glucose Urine Negative (Negative); Ketones Urine Negative (Negative); Leukocyte Esterase Urine Negative (Negative); Nitrite Urine Negative (Negative); Protein Urine 1+ (Negative)
[2024-11-21 16:47] LABS: RBC Urine 0-2 (0-2); WBC Urine 0-2 (0-5)
[2024-11-21] MEDS: LACTATED RINGERS 1000 ML 1,000 ML IV (17:01)
--- NOTE | 2024-11-21 19:35 | PM.OBHPLI ---
OB - H&P: HPI Labor/Induction History of Present Illness Time Seen by Provider: 19:35 Date Seen: 11/21/24 Chief Complaint: The patient is a 34 year old 7 para 2 at 37+0 weeks gestation by LMP c/w 9 wk US, who presents with contractions. Chief complaint: Maternity : 7 Para: 2 Narrative: Arabella Mccain is a 34 year old female at 37w0d by LMP c/w 9 wk US who presents with contractions. has been complicated by the following: -- history of labor, was on progesterone -- obesity, BMI 33 -- [facility] of [facility] Did not have preeclampsia with most recent -- history of section for intolerance of labor with her second . She had consult with [facility] for TOLAC vs repeat , and has elected to proceed with repeat She reports contractions starting around 0500. These have become more intense and frequent throughout the day. Denies LOF or vaginal bleeding. movement has been increased. No headaches, visual changes or significant swelling in her lower extremities. She does note nasal congestion starting yesterday. No sore throat, cough, fever/chills/sweats. Her daughter is also ill with congestion. Upon arrival, she was dayne on the monitor about every 8 minutes. Cervix was 1.5/50/high. Over 2 hours of monitoring, contractions became subjectively more painful and intense. Cervix changed to 2/50/-2. History of Present Dating criteria: based on LMP care: good care Ultrasounds: normal 1st trimester US and normal mid trimester US Abnormal ultrasound findings: Dating ultrasound 05/12/2024: Single living intrauterine with sonographic gestational age 9 weeks 6 days and a sonographic due date of 12/09/2024. OBSTETRICAL ULTRASOUND ANATOMY SURVEY 07/22/2024 CLINICAL HISTORY: anatomy survey. TECHNIQUE: Multiple sonographic images were obtained transabdominally. FINDINGS: Gestational age by LMP: 19 weeks 4 days. Gestational age by today's ultrasound: 20 weeks 2 days. KARLA by LMP: 12/12/2024 KARLA by first ultrasound: 12/09/2024 KARLA by today's ultrasound: 12/07/2024 Heart Rate: 129 beats per minute. SDP: 3.9 cm. Cervical Length: 5.9 cm. EFW: 337 gm. Percentile: 80th. Position: Variable. BPD: 4.86 cm, 20 weeks 5 days, 89%. HC: 16.81 cm, 19 weeks 4 days, 37%. AC: 14.90 cm, 20 weeks 2 days, 65%. FL: 3.30 cm, 20 weeks 3 days, 70%. SURVEY STRUCTURE VISUALIZED INADEQUATELY VISUALIZED Lateral Ventricles x Cerebellum/Cisterna Magna x Profile x Face x Nose/Lips x Spine C, T, L, S x Four-chamber Heart x RVOT/LVOT x 3VV x Stomach x Kidneys x Bladder x Three-vessel Cord x Cord Insertion; placenta & x Extremities x Diaphragm x IMPRESSION: Single live intrauterine gestation. No gross anomalies visualized. Growth ultrasound: 10/14/2024 Single living intrauterine gestation. heart rate: 130 beats per minute. Presentation: Cephalic. Placenta: Posterior. Amniotic fluid deepest pocket: 5 cm. The following biometric measurements were obtained: Biparietal diameter: 32 weeks 4 days. Head circumference: 32 weeks 1 day. Abdominal circumference: 33 weeks 1 day. Femur length: 31 weeks 2 days. EFW: 1951 Grams, 50 %. AUA: 32 weeks 2 days. KARLA (AUA): December 07, 2024. IMPRESSION.: Viable intrauterine . No abnormalities seen. Labs Narrative: TESTING: GBS: -- collected today O Rh positive One Hour Glucose = 128 Hgb = 12.9 HIV = non-reactive Treponema = non-reactive GC = Negative Chlamydia = Negative Review of Systems Status of ROS: Reports: 10 or more systems reviewed and unremarkable except as noted in History and below Meds Home Medications and Allergies Home Medications ?Medication ?Instructions ?Recorded ?Confirmed ?Type vitamin with calcium 1 tab PO DAILY 01/20/23 11/21/24 History no.72-iron 27 mg-folic acid 1 mg tablet ( Vitamins Plus Low Iron) aspirin 81 mg tablet,delayed 81 mg PO DAILY 07/08/24 11/21/24 History release Allergies Allergy/AdvReac Type Severity Reaction Status Date / Time No Known Drug Allergies Allergy Verified 11/21/24 16:22 OB - H&P: Exam Physical Exam: Vital signs: Pulse BP Pulse Ox 100 120/74 96 11/21/24 16:18 11/21/24 16:18 11/21/24 16:18 Narrative: General appearance: Well-appearing adult female. Alert, oriented and appropriate. Sitting up in hospital bed. HEENT: EOMI, no conjunctival injection or discharge. MMM. Sounds congested. Neck: Supple. CV: RRR, no rubs, murmurs or extra heart sounds. Pulm: CTAB, no wheezes, rales or rhonchi. Abdomen: Gravid MSK: Moving all extremities. Ext: Warm and well-perfused. Trace edema. Skin: No rashes appreciated over exposed skin. Neuro: Grossly normal strength and sensation. No focal deficits. Psych: Normal affect. 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 Regular, painful contractions with cervical loom changer 2 hours of observation. Patient desires repeat section. Discussed with on-call HAND LEATHER TRIMMER, Dr. Khadijah Ahn. Plan is to proceed with unplanned repeat section. - Of note, had previously discussed tubal ligation and NO LONGER DESIRES TO PROCEED WITH THIS - GBS negative - status reassuring, category I
[2024-11-21 20:34] LABS: Basophils Absolute Auto 0.01 K/uL (0.00-0.30); Basophils Percent Auto 0.1 % (0.0-3.0); Eosinophils Absolute Auto 0.05 K/uL (0.00-0.50); Eosinophils Percent Auto 0.5 % (0.0-7.0); Immature Granulocytes Abs Auto 0.09 K/uL (0.00-0.30); Immature Granulocytes Pct Auto 0.8 %; Mean Corpuscular HGB Conc 33 gm/dL (32-36); Mean Corpuscular Hemoglobin 31 pg (26-34); Mean Corpuscular Volume 92 fL (80-100); Monocytes Percent Auto 3.6 % (0.0-11.0); Platelet Count* 191 K/uL (140-440); RDW Coefficient of Variation % 13.7 % (11.5-15.5); Red Blood Count 4.24 m/uL (4.00-5.20)
[2024-11-21] MEDS: LACTATED RINGERS 1000 ML 1,000 ML 500 ML IV (20:35)
[2024-11-21 20:36] LABS: Slide Review Reflex No
[2024-11-21 20:49] LABS: PCR FLU A Negative PCR FLU A (Negative); PCR FLU B Negative PCR FLU B (Negative); SARS PCR* Negative SARS-CoV-2 (Negative)
[2024-11-21] MEDS: CEFAZOLIN 2 GM INJ IVP (21:06)
--- NOTE | 2024-11-21 21:36 | SUR.OPER ---
PATIENT AMBULATED TO OR #5 BY OB RN's. Patient positioned supine on OR #4 bed for the SPINAL. ? Final approval of positioning by surgeon. SURGEON DECLINES OFFER TO SEND PLACENTA TO PATHOLOGY.
[2024-11-21] MEDS: KETOROLAC 30 MG/ML inj IVP (22:15)
--- NOTE | 2024-11-21 22:51 | W.ANESCHARGE ---
Anesthesia Charges Start Date/Time Anesthesia Start Date: 11/21/24 Anesthesia Start Time: 20:52 Stop Date/Time Anesthesia Stop Date: 11/21/24 Anesthesia Stop Time: 22:43 Summary Emergency: DELI CUTTER SLICER Coding CPT Codes CPT Codes: ANESTH CS DELIVERY - 05015 ([id number]) P2 - PATIENT W/MILD SYST DISEASE, QZ - DELI CUTTER SLICER SVC W/O MACHINE REPAIRER MAINTENANCE BY Additional Codes: Summary - Emergency: DELI CUTTER SLICER ([id number])
--- NOTE | 2024-11-21 22:53 | W.PM.NB ---
Nerve Block Nerve Block Time Seen by Provider: 22:30 Date Seen: 11/21/24 Type of block requested by surgeon for post-operative analgesia: TAP Side: bilateral Time out performed: Yes Verification of patient name: Yes Verification of date of : Yes Site marking: not applicable Name of person performing procedure: Juli Hayward Continuous monitoring Was continuous monitoring of O2 sat, B/P, case monitor, recorded every 15 minutes?: Yes Procedure Checklist: sterile prep, needles and gloves Ultrasound guided. Images saved: Yes Medications given in 5ml increments after negative aspiration: Marcaine %: 0.25 mL: 30 Needle gauge: 20 and Exparel mL: 10 Needle gauge: 20 Patient tolerated procedure well: Yes Block Charges Block Charge (with Pro Fee): TAP Bilateral Use of Ultrasound Machine for Block: Yes- US Guidance/pain block
--- NOTE | 2024-11-21 22:59 | PM.OBPRCCS ---
Procedure Date of procedure: 11/21/24 Procedure Done: only Will [facility] bill your pro fee for this procedure?: Yes Blood Loss Measurement Type: QBL (709) IV fluids (mL): 600 Urine Output (mL): 200 Surgeon: Khadijah Ahn MD Anesthesia Type: Spinal Procedure Name: Repeat low-transverse section Procedure Description: PREOPERATIVE DIAGNOSIS: Labor at 37 weeks, 3 days gestation Previous , desires repeat POSTOPERATIVE DIAGNOSIS: Same Procedure: Repeat low-transverse section SURGEON: Khadijah Ahn MD ANESTHESIA: Spinal IV FLUIDS: 600 mL crystalloid QBL: 709 mL URINE OUTPUT: 200 mL FINDINGS: 1. Male , cephalic OA presentation, Apgars of 8 and 6, weight pending at time of this dictation 2. Normal appearance to uterus, bilateral tubes and ovaries. COMPLICATIONS: None PROCEDURE IN DETAIL: Patient was taken to the operating room with IV running. She received cefazolin in preoperative prophylaxis. Spinal anesthesia had previously been administered. Tee catheter was inserted. She was prepped and draped in the usual sterile fashion. Anesthesia was tested and found to be adequate. A low-transverse skin incision was made with a scalpel and carried through to the underlying layer of fascia with the scalpel. The subcutaneous fat was dissected off the underlying fascia with Bovie. The fascia was nicked in the midline with a scalpel, and this incision was extended laterally with scissors. The fascia was dissected off the underlying rectus muscles sharply. The rectus muscles were in the midline. Peritoneum was identified and entered bluntly. Bovie was used to widen this opening laterally. Connor O retractor was inserted and tightened down, providing excellent visualization of the lower uterine segment. The bladder reflection was found to be well below the planned site for hysterotomy. Low-transverse uterine incision was made with a scalpel. Incision was widened bluntly. The 's head was grasped through the hysterotomy and delivered with the help of fundal pressure. The remainder of the body delivered without incident. Cord was clamped and cut after 30 seconds. Infant was handed off to attending nurses. The placenta was delivered with gentle traction on the cord. The uterus was cleaned of all clots and debris with the dry lap pad. The hysterotomy was reapproximated with 0 Vicryl in a running, locked fashion. Second layer of the same suture was used in imbricating fashion. Chromic suture was also used to close a superficial extension through the left serosa. Hemostasis was then noted. The adnexa were examined and noted to be normal in appearance. The cul-de-sac and gutters were cleansed with dampened laparotomy sponge, removing any further clots and debris. The Connor O retractor was removed. The hysterotomy was reexamined and found to be hemostatic. The peritoneum was reapproximated with 2 0 Vicryl in a running fashion. The rectus muscles were examined and Bovie was used on oozing vessels. The fascia was reapproximated with 0 Vicryl in a running fashion. Subcutaneous fat was irrigated and Bovie used on oozing vessels. The subcutaneous fat was reapproximated with 2 0 plain gut suture in an interrupted fashion. The skin was closed with a subcuticular stitch of 4-0 Monocryl. Silver dressing was applied above this. Patient tolerated procedure well was taken to recovery area in stable condition. Pathology: none sent Surgery Debrief Performed: Yes
[2024-11-22] VITALS (30 sets, daily range): BP systolic 90–119; BP diastolic 52–69; PULSE 91–117; RESP 16–18; TEMP 36.5–37.1; O2SAT 95–98; BMI 38.5
[2024-11-22] MEDS: diphenhydrAMINE 50 MG/ML inj 12.5 MG IVP ×2 (00:06→06:05)
[2024-11-22] MEDS: ONDANSETRON 2 MG/ML inj 4 MG IV (00:24)
[2024-11-22] MEDS: LACTATED RINGERS 1000 ML 1,000 ML 500 ML IV (01:13)
[2024-11-22] MEDS: KETOROLAC 30 MG/ML inj IVP ×4 (04:30→23:41)
[2024-11-22] MEDS: LACTATED RINGERS 500 ML 500 ML 125 ML IV (04:51)
[2024-11-22 05:40] LABS: Basophils Percent Auto 0.1 % (0.0-3.0); Hematocrit 29.9 % (33.0-51.0); Hemoglobin* 10.1 gm/dL (12.0-16.0); Immature Granulocytes Pct Auto 0.5 %; Lymphocytes Percent Auto 7.9 % (20-44); Mean Corpuscular HGB Conc 34 gm/dL (32-36); Mean Corpuscular Hemoglobin 32 pg (26-34); Mean Corpuscular Volume 93 fL (80-100); Monocytes Percent Auto 3.9 % (0.0-11.0); Neutrophils Percent Auto 87.6 % (42.0-72.0); Platelet Count* 162 K/uL (140-440); RDW Coefficient of Variation % 13.8 % (11.5-15.5); White Blood Count* 11.92 K/uL (4.50-11.00)
[2024-11-22 05:45] LABS: Slide Review Reflex No
[2024-11-22] MEDS: SIMETHICONE 80 MG TAB.CHEW PO ×2 (06:05→19:46)
[2024-11-22] MEDS: ACETAMINOPHEN 500 MG TABLET 1000 MG PO ×2 (06:14→19:45)
[2024-11-22] MEDS: LACTATED RINGERS 500 ML 500 ML IV (06:48)
--- NOTE | 2024-11-22 08:01 | PM.OBPNVD1 ---
OB - PN:Subj Subjective Date Seen: 11/22/24 Narrative: Arabella is a 34 y.o. who was admitted to [facility] & [facility] for early labor and proceeded to have a repeat as planned, though not scheduled. ?She had an uncomplicated .?The patient feels well. ?The pain is well controlled with current medications. ?She has no new complaints. ?She is breast feeding. Reports things are going well.? the patient has done well.? Vitals have been stable.? She has remained afebrile.? Has a good appetite, is tolerating a general diet. ?She is voiding without difficulty.? She is not passing gas and has not had a bowel movement.? She is not yet ambulating.? Has Small amount of rubra lochia. ? OB - PN: Obj Exam Physical Exam: Vital signs: Temp Pulse Resp BP Pulse Ox O2 Del Method 98.6 F 110 H 16 106/68 98 Room Air 11/22/24 05:05 11/22/24 07:33 11/22/24 07:00 11/22/24 05:05 11/22/24 07:33 11/22/24 07:33 Narrative: GENERAL APPEARANCE:? normal affect, alert, no distress MOOD:? appropriate CHEST:? clear to auscultation HEART:? regular rate and rhythm ABDOMEN:? soft, non-tender the uterine fundus is 2 cm below Umbilicus, Midline and is appropriate for the stage of recovery. EXTREMITIES:? normal and moderate edema Incision: Silvadene dressing intact with 2 areas of drainage midline. Minimal increase in dark red/brown drainage since area traced last. No surrounding erythema visible. OB - PN: Obj Data Labs Labs: Laboratory Results - last 24 hr 11/21/24 11/21/24 11/21/24 16:30 19:52 20:24 WBC 10.90 RBC 4.24 Hgb Cancelled Hct MCV MCH MCHC RDW Coeff of Antoinette Plt Count Neut % (Auto) Lymph % (Auto) [place] % (Auto) Eos % (Auto) Baso % (Auto) Neut # (Auto) Lymph # (Auto) [place] # (Auto) Eos # (Auto) Baso # (Auto) Abs Immat Gran (auto) Imm/Tot Granulo (auto) Urine Color Yellow Urine Appearance Clear Urine pH 6.0 Ur Specific [place] 1.020 Urine Protein 1+ A Urine Glucose (UA) Negative Urine Ketones Negative Urine Blood Negative Urine Nitrite Negative Urine Bilirubin Negative Urine Urobilinogen 1.0 Ur Leukocyte Esterase Negative Urine RBC 0-2 Urine WBC 0-2 Ur Squamous Epith Cells None Urine Bacteria None SARS-CoV-2 (PCR) Negative SARS-CoV-2 Influenza Type A (PCR) Negative PCR FLU A Influenza Type B (PCR) Negative PCR FLU B Blood Type Antibody Screen 11/21/24 11/22/24 20:24 05:33 WBC 11.92 H RBC 3.20 L Hgb 13.0 10.1 L Hct 39.0 29.9 L MCV 92 93 MCH 31 32 MCHC 33 34 RDW Coeff of Antoinette 13.7 13.8 Plt Count 191 162 Neut % (Auto) 84.0 H 87.6 H Lymph % (Auto) 11.0 L 7.9 L [place] % (Auto) 3.6 3.9 Eos % (Auto) 0.5 0.0 Baso % (Auto) 0.1 0.1 Neut # (Auto) 9.20 H 10.40 H Lymph # (Auto) 1.20 0.90 [place] # (Auto) 0.40 0.50 Eos # (Auto) 0.05 0.00 Baso # (Auto) 0.01 0.00 Abs Immat Gran (auto) 0.09 0.10 Imm/Tot Granulo (auto) 0.8 0.5 Urine Color Urine Appearance Urine pH Ur Specific [place] Urine Protein Urine Glucose (UA) Urine Ketones Urine Blood Urine Nitrite Urine Bilirubin Urine Urobilinogen Ur Leukocyte Esterase Urine RBC Urine WBC Ur Squamous Epith Cells Urine Bacteria SARS-CoV-2 (PCR) Influenza Type A (PCR) Influenza Type B (PCR) Blood Type O Positive Antibody Screen NEGATIVE OB - PN: A/P Delivery Assessment and Plan (1) S/P repeat low transverse : Status: Acute (2) care and examination of lactating mother: Status: Acute (3) Obesity (BMI 30.0-34.9): Status: Acute Plan A: Status post repeat unscheduled VSS PP day 1 P: Routine PP care with plan to get out of bed today. Anticipate discharge 11/23/ or 11/24. Nipple garnica requested per patient request. Will meet with if nipple garnica do not assist with latching as anticipated.
[2024-11-22] MEDS: LANOLIN CREAM 1 APPLIC TOPICAL (19:45)
[2024-11-22] MEDS: DOCUSATE SODIUM 100 MG CAPSULE PO (21:32)
[2024-11-23] MEDS: diphenhydrAMINE 50 MG/ML inj 12.5 MG IVP (00:14)
[2024-11-23] MEDS: ACETAMINOPHEN 500 MG TABLET 1000 MG PO ×3 (03:34→16:25)
[2024-11-23] MEDS: OXYCODONE 5 MG TABLET PO ×4 (03:42→16:26)
[2024-11-23 04:42] VITALS: BP 92/52; PULSE 84; RESP 18; TEMP 36.4; O2SAT 95
[2024-11-23] MEDS: SIMETHICONE 80 MG TAB.CHEW PO (04:54)
[2024-11-23] MEDS: KETOROLAC 30 MG/ML inj IVP (05:44)
[2024-11-23 06:35] LABS: Hemoglobin* 9.2 gm/dL (12.0-16.0)
[2024-11-23 07:36] VITALS: BP 93/58; PULSE 84; RESP 16; TEMP 36.9; O2SAT 97
[2024-11-23] MEDS: DOCUSATE SODIUM 100 MG CAPSULE PO (07:51)
--- NOTE | 2024-11-23 08:56 | PM.OBDSVD1 ---
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 normal affect, alert, no distress MOOD:? appropriate CHEST:? clear to auscultation HEART:? regular rate and rhythm ABDOMEN:? soft, non-tender the uterine fundus is At Umbilicus, Midline and is appropriate for the stage of recovery. EXTREMITIES:? normal and trace edema INCISION: Silver dressing in place; clean, dry and intact Const: Vital Signs, click to edit/add: Vital Signs - 24 hr 11/22/24 09:00 11/22/24 09:26 11/22/24 10:00 Temperature 98.7 F Pulse Rate [Pulse Oximeter] 104 H Respiratory Rate 18 16 16 Blood Pressure [Ri ght Arm] 97/62 Pulse Oximetry 98 Oxygen Delivery Me thod Room Air 11/22/24 11:00 11/22/24 12:00 11/22/24 12:00 Temperature 98.2 F Pulse Rate [Pulse Oximeter] 106 H Respiratory Rate 16 18 16 Blood Pressure [Ri ght Arm] 98/59 L Pulse Oximetry 96 Oxygen Delivery Me thod Room Air 11/22/24 13:00 11/22/24 14:00 11/22/24 15:00 Temperature Pulse Rate [Pulse Oximeter] Respiratory Rate 16 16 16 Blood Pressure [Ri ght Arm] Pulse Oximetry Oxygen Delivery Me thod 11/22/24 16:00 11/22/24 17:00 11/22/24 17:00 Temperature 98.2 F Pulse Rate [Pulse Oximeter] 100 Respiratory Rate 16 18 16 Blood Pressure [Ri ght Arm] 102/63 Pulse Oximetry 95 Oxygen Delivery Me thod Room Air 11/22/24 18:00 11/22/24 19:00 11/22/24 20:00 Temperature Pulse Rate [Pulse Oximeter] Respiratory Rate 16 16 16 Blood Pressure [Ri ght Arm] Pulse Oximetry Oxygen Delivery Me thod 11/22/24 21:00 11/22/24 22:15 11/23/24 04:42 Temperature 97.8 F 97.6 F Pulse Rate [Pulse Oximeter] 91 84 Respiratory Rate 16 18 18 Blood Pressure [Ri ght Arm] 90/60 92/52 L Pulse Oximetry 96 95 Oxygen Delivery Me thod Room Air Room Air 11/23/24 07:36 Temperature 98.5 F Pulse Rate [Pulse Oximeter] 84 Respiratory Rate 16 Blood Pressure [Ri ght Arm] 93/58 L Pulse Oximetry 97 Oxygen Delivery Me thod Room Air Documenting provider has reviewed patient's vital signs: yes OB - DS: Summary Hospital Course Hospital Course: Arabella is a 34 y.o. G 7 P 3 who was admitted to [facility] for repeat c/s. ?She had a section that was uncomplicated. The patient feels well. ?The pain is well controlled with current medications. ?She has no new complaints. ?She is breast feeding and reports things are going well. the patient has done well.? Vitals have been stable.? She has remained afebrile.? Has a good appetite, is tolerating a general diet. ?She is voiding without difficulty.? She is passing gas and has not had a bowel movement.? She is ambulating and denies any dizziness.? Has small amount of rubra lochia. Her had a vasectomy for prevention. Problems: Anemia Discharge home with baby.? Follow up in 2 weeks and 6 weeks.? , may see if needed? Hgb 9.2. Iron supplement ordered orally every other day? Silver Dressing. Removal by provider/RN in clinic in 1 week.? For pain control of perineum, breast and pelvic pain, take 600 mg Ibuprofen every 6 hours as needed by mouth or 1000 mg acetaminophen (Tylenol) every 6 hours by mouth as needed. You can alternate these so you are taking something every 3 hours as needed. A heating pad can also be used for your abdomen or breasts. You may also take docusate sodium up to twice daily to soften your stools and help to prevent constipation. You may wean off of it when your stools return to normal.? Peripartum Data Infant delivery method: Repeat Section Laceration description: None Procedures: Procedures Operation Date: 11/21/24 21:00 Actual Procedure Side Surgeon p REPEAT Section Khadijah Ahn MD complications: none Infant Gender: Male Infant Discharge Plan: Home Status at Discharge Functional status at discharge: independent ambulation Overall status at discharge: patient is progressing back to baseline Time Spent with Patient Time attestation: Total time spent providing and/or coordinating discharge services: Time spent: Less than 30 minutes Discharge Plan Discharge Disposition: Home, Self-Care Date of Admission: 11/21/24 20:25 Attending Provider on Discharge: Marlene Arriaga Primary Care Provider: Shilpa Juarez Condition: Stable Anticipated Discharge Date/Time: 11/23/24 12:00 Discharge Medications: New docusate sodium 100 mg Capsule 100 mg PO DAILY Qty: 90 0RF simethicone 80 mg Tablet,Chewable 80 - 160 mg PO Q4H PRN (Reason: Gas) Qty: 20 0RF oxycodone 5 mg Tablet 5 - 10 mg PO Q4H PRN (Reason: Pain) Qty: 15 0RF Continued Vitamin Plus Low Iron 27 mg iron- 1 mg tablet 1 tab PO DAILY ibuprofen 600 mg tablet 600 mg PO Q6H PRN (Reason: Pain) Qty: 60 0RF Discontinued acetaminophen 500 mg tablet 1,000 mg PO Q6H PRN (Reason: Pain) Qty: 30 0RF aspirin 81 mg tablet,delayed release (DR/EC) 81 mg PO DAILY Discharge Orders: Discharge Order (Routine); Ordered 11/23/24 Ordered By: Marlene Arriaga Patient Education: OB Over the Counter Medication Information, OB /Breast Feeding Additional Instructions: Discharge instructions were reviewed with the patient including signs and symptoms of infection and home going medications Lifting Restrictions: 20 pounds for 6 weeks No not submerge incision under water X 2 weeks? Nothing vaginally for 6 weeks: no tampons or intercourse Do not drive while taking narcotic pain medication(s) Off Work or School for 8 weeks 1-week incision check for dressing removal. 2-week visit: incision check, discuss infant feeding concerns, review control options and screen for anxiety/depression. 6-week visit for an annual exam. consultation services are available to all mothers and babies for the first year after delivery.? To make an appointment, please call [phone]. Activity Level: Activity as Tolerated Discharge Diet: Regular Follow Up Appointments: [facility] [Provider Group] Forms: [facility] Info Instructions
[2024-11-23] MEDS: FERROUS SULFATE 325 MG TABLET PO (09:56)
[2024-11-23 09:58] LABS: Rapid Plasma Reagin (RPR) Non Reactive (Non Reactive)
[2024-11-23] MEDS: IBUPROFEN 600 MG TABLET PO (12:10)
== END 2024-11-23 16:50 | disposition home or self-care (01) | DRG 788 ==
LOC: OB OUT 20:25 → OB 20:25
PROVIDERS: Family Medicine; Admitting Provider Obstetrics & Gynecology; PCP Family Medicine; Visit Provider Obstetrics & Gynecology
PROC: 10D00Z1 Extraction of Products of Conception, Low, Open Approach (ICD-10-PCS; CPT 59514; principal; 2024-11-21 20:45)
DX: O99.214 Obesity complicating childbirth (principal); O75.82 Onset (spontaneous) of labor after 37 completed weeks of gestation but before 39 completed weeks gestation, with delivery by (planned) cesarean section; G89.18 Other acute postprocedural pain; E66.9 Obesity, unspecified; Z3A.37 37 weeks gestation of pregnancy; Z37.0 Single live birth
CPT/HCPCS: 01961; 36415; 64488; 76942; 81001; 81003; 85018; 85025; 86592; 86850; 86900; 86901; 87631; 94761; 99140; T1013; A4314; A9270; J0665; J0666; J0690; J1100; J1200; J1885; J2274; J2371; J2405; J2590; J7120

== ENCOUNTER 2025-05-18 15:45 | Outpatient (RCR) | payer MEDICAID, SELFPAY | END 2025-09-15 23:59 | disposition home or self-care (01) | PROVIDERS: PCP Family Medicine; Visit Provider Family Medicine | DX: Z39.2 Encounter for routine postpartum follow-up (principal); M53.3 Sacrococcygeal disorders, not elsewhere classified; R29.898 Other symptoms and signs involving the musculoskeletal system; Z51.89 Encounter for other specified aftercare | CPT/HCPCS: 97112; 97140; 97161; 97530; T1013 ==